=== PATIENT | female | born 1960 | race Caucasian/White ===

== ENCOUNTER → 2017-07-08 | Outpatient (CLI) | payer BC ==
[~2017-07-08] MED LIST: ANAS1TAB6 PO; BUPRTAB51 PO; HYDR25TA4 PO; HYDR50TA3 PO; METF750T PO; METFTAB2 PO; POTATAB2 PO; VITAMIN D TOP
--- NOTE | 2017-07-16 09:05 | CODING QUERY MEDICAL NECESSITY ---
SUPPORTING DIAGNOSIS NEEDED Dr. Milan, A supporting diagnosis is required for the test/procedure performed on this patient in order for us to be reimbursed by the patient's insurance. Please provide a supporting diagnosis for the following test/procedure listed below next to the test name along with your signature. *If there is no additional diagnosis for this patient that would support the following test/procedure please document that below next to the test/procedure. Test(s)/Procedure(s) that require a supporting diagnosis: * ([id number]) DXA BONE DENSITY, AXIAL DIAGNOSIS: DATE OF SERVICE: 07/08/17 Provider Signature: Date: Thank you Mango Claros [facility] Information Management Once completed, please kindly fax back to [phone] For questions please call [phone]
== END | disposition home or self-care (01) ==
LOC: C.MAMM 15:36
PROVIDERS: ATTEND Internal Medicine Hematology & Oncology
DX: D05.90 Unspecified type of carcinoma in situ of unspecified breast (principal); M85.80 Other specified disorders of bone density and structure, unspecified site

== ENCOUNTER → 2017-07-08 | Outpatient (CLI) | payer BC ==
--- NOTE | 2017-07-08 11:57 | DIAGNOSTIC IMAGING REPORT ---
KUB HISTORY: Nephrolithiasis. Follow-up. COMPARISON: KUB 05/17/2016. FINDINGS: The bowel gas pattern is unremarkable. There are no dilated loops of small bowel to suggest an obstruction. Multiple punctate left renal calculi, unchanged. The right kidney is partially obscured by overlying bowel but appears to contain multiple punctate renal calculi. Stable phlebolith within the right deep pelvis. No definite ureteral or bladder calculi. No pneumoperitoneum or pneumatosis. IMPRESSION: Stable bilateral nephrolithiasis. Electronically signed by: Ronan Alberto M.D. 07/08/2017 11:56 AM Dictated Date/Time: 07/08/2017 11:54 AM
== END | disposition home or self-care (01) ==
LOC: C.RAD 10:44
PROVIDERS: ATTEND Nurse Practitioner Adult Health
DX: N20.0 Calculus of kidney (principal)

== ENCOUNTER → 2018-02-04 | Outpatient (CLI) | payer OTHER ==
[~2018-02-04] MED LIST changes: -ANAS1TAB6 PO; +ANAS1TAB7 PO; +HYDR-5688 PO; -HYDR50TA3 PO; -METF750T PO; +SULF800T23 PO; -VITAMIN D TOP
== END | disposition home or self-care (01) ==
LOC: C.PAPS 12:28
PROVIDERS: ATTEND Obstetrics & Gynecology
DX: Z12.4 Encounter for screening for malignant neoplasm of cervix (principal)

== ENCOUNTER → 2018-06-16 | Outpatient (CLI) | payer OTHER ==
[~2018-06-16] MED LIST changes: -HYDR-5688 PO
--- NOTE | 2018-06-16 10:47 | DIAGNOSTIC IMAGING REPORT ---
RIGHT TIBIA AND FIBULA 2 VIEWS CLINICAL HISTORY: Right leg pain. FINDINGS: AP and lateral views of the right tibia and fibula are obtained. No prior studies are available for comparison at the time of dictation. The skeletal structures are well mineralized for age. No fracture is seen. The knee and ankle joints are grossly preserved. A large dorsal calcaneal enthesophyte is noted. The overlying soft tissues are within normal limits. IMPRESSION: No acute bony abnormality is seen involving the right tibia or fibula. Electronically signed by: Steffen Matos M.D. 06/16/2018 10:45 AM Dictated Date/Time: 06/16/2018 10:45 AM
--- NOTE | 2018-06-16 10:48 | DIAGNOSTIC IMAGING REPORT ---
L TIBIA/FIBULA 2 VIEWS ROUTINE CLINICAL HISTORY: Bilateral leg pain. COMPARISON: None FINDINGS: No fracture or osseous lesion within the left tibia or fibula is identified. Talar dome is intact. Alignment of the left ankle is anatomic. Moderate posterior and plantar calcaneal spurring is noted. IMPRESSION: No significant abnormality of the left tibia or fibula. Electronically signed by: Alonzo Chambers M.D. 06/16/2018 10:47 AM Dictated Date/Time: 06/16/2018 10:45 AM
== END | disposition home or self-care (01) ==
LOC: C.RAD1850 10:31
PROVIDERS: ATTEND Family Medicine
DX: M79.605 Pain in left leg (principal); Z85.3 Personal history of malignant neoplasm of breast; L40.9 Psoriasis, unspecified; R73.03 Prediabetes; R00.2 Palpitations